=== PATIENT | female | born 1975 | race African-American/Black ===

== ENCOUNTER 2021-10-03 08:36 | Outpatient (CLI) | payer OTHER | END 2021-10-03 08:37 | disposition home or self-care (01) | LOC: CSHLAB 08:36 | PROVIDERS: ATTEND Orthopaedic Surgery | DX: Z01.812 Encounter for preprocedural laboratory examination (principal); Z20.822 Contact with and (suspected) exposure to COVID-19; Z53.9 Procedure and treatment not carried out, unspecified reason | CPT/HCPCS: 80048; 85027; 85610; 85730; 86850; 86900; 86901; U0003; U0005 ==

== ENCOUNTER 2021-10-07 10:40 | Outpatient (CLI) | payer OTHER | END 2021-10-07 10:41 | disposition home or self-care (01) | LOC: CSHLAB 10:40 | PROVIDERS: ATTEND Orthopaedic Surgery | DX: Z01.812 Encounter for preprocedural laboratory examination (principal); Z20.822 Contact with and (suspected) exposure to COVID-19; M54.2 Cervicalgia; M54.12 Radiculopathy, cervical region | CPT/HCPCS: 86850; 86900; 86901; U0003; U0005 ==

== ENCOUNTER 2021-10-10 05:29 | Day surgery (SDC) | payer OTHER ==
[2021-10-02 13:56] VITALS: BMI 19.6
[2021-10-03 11:24] LABS: Hemoglobin 12.1 g/dL (12.0-15.5); Mean Corpuscular HGB CONC 33.1 g/dL (32.0-36.0); Mean Corpuscular Hemoglobin 33.5 pg (27.0-33.0); Mean Corpuscular Volume 101.4 fl (81.6-98.3); Mean Platelet Volume 10.4 fl (7.4-10.4); Platelet Count 347 10x3/uL (150-450); RBC Distribution Width 13.2 % (11.5-14.5); Red Blood Cell (RBC) Count 3.61 10x6/uL (3.90-5.03); White Blood Cell (WBC) Count 6.9 10x3/uL (3.5-10.5)
[2021-10-03 11:27] LABS: PTT 27.7 sec (22.0-33.0); Prothrombin Time 10.9 sec (9.5-12.1)
[2021-10-03 11:33] LABS: Anion Gap 13 mmol/L (10-20); BUN (Urea Nitrogen) 10 mg/dL (7.0-18.7); Calc. Creatinine Clearance 0 mL/min (70-130); Calcium 9.3 mg/dL (7.8-10.44); Carbon Dioxide 27 mmol/L (22-29); Chloride 107 mmol/L (98-107); Glucose 82 mg/dL (70-105); Potassium 3.8 mmol/L (3.5-5.1); Sodium 143 mmol/L (136-145)
[2021-10-03 17:37] LABS: SARS-CoV-2 PCR by NAA Not Detected (NotDetected)
[2021-10-07 20:37] LABS: SARS-CoV-2 PCR by NAA Not Detected (NotDetected)
[2021-10-10] MEDS ORDERED: Famotidine/PF 20 mg/2ml Vial ONE (06:17)
[2021-10-10] MEDS ORDERED: Lidocaine 1% MPF 2 ML VIAL ONE (06:17)
[2021-10-10] MEDS ORDERED: Rocuronium Bromide 10 MG/ML (10ML VIAL) ONE (06:37)
[2021-10-10] MEDS ORDERED: Fentanyl 100 MCG/2 ML VIAL ONE ×3 (06:37→10:34)
[2021-10-10] MEDS ORDERED: Succinylcholine 200 MG/10 ml SYRINGE FS ONE (06:37)
[2021-10-10] MEDS ORDERED: Lidocaine 1% PF 5 ML VIAL ONE (06:37)
[2021-10-10] MEDS ORDERED: PHENYLEPHRINE-NS 100 MCG/ML 10 ML SYRINGE ONE (06:37)
[2021-10-10] MEDS ORDERED: Ondansetron PF 4 MG/2 ML Vial ONE (06:37)
[2021-10-10] MEDS ORDERED: ePHEDrine Sulfate 50 MG/10 ML VIAL ONE (06:37)
[2021-10-10] MEDS ORDERED: Ketorolac Tromethamine 30 MG/ML VIAL ONE (06:38)
[2021-10-10] MEDS ORDERED: Propofol 1,000 MG/100 ML VIAL IV ONE ×2 (06:42)
[2021-10-10] MEDS ORDERED: Phenylephrine 40 MG/NS 250 ML 250 ML ONE (06:43)
[2021-10-10] MEDS ORDERED: Midazolam HCl 2 mg/2 ml Vial ONE (07:10)
[2021-10-10] MEDS ORDERED: Dexamethasone 4 mg/ml Vial ONE (08:00)
[2021-10-10] MEDS ORDERED: Glycopyrrolate 0.2 MG/ML 5 ML SYRINGE ONE (09:47)
[2021-10-10] MEDS ORDERED: HYDROmorphone 0.5 MG/0.5 ML SYRINGE ONE (11:46)
== END 2021-10-10 13:30 | disposition home or self-care (01) ==
LOC: CSHSDC 05:29
PROVIDERS: ATTEND Orthopaedic Surgery
DX: M50.122 Cervical disc disorder at C5-C6 level with radiculopathy (principal); M48.02 Spinal stenosis, cervical region
CPT/HCPCS: 72050; 76000; 80048; 85027; 85610; 85730; 86850; 86900; 86901; C1713; C1762; J0690; J1100; J1170; J1885; J2250; J2405; J2704; J3010; S0028; U0003; U0005